=== PATIENT | female | born 1955 | race Caucasian/White ===

== ENCOUNTER → 2016-04-20 | Outpatient (CLI) | payer MEDICARE | LOC: OPSV 13:58 | DX: C56.9 Malignant neoplasm of unspecified ovary (principal); R11.0 Nausea; R11.10 Vomiting, unspecified | CPT/HCPCS: 96360; 96361; J7030 ==

== ENCOUNTER → 2016-05-05 | Outpatient (CLI) | payer MEDICARE | LOC: OPSV 15:47 | DX: C56.9 Malignant neoplasm of unspecified ovary (principal) | CPT/HCPCS: 96360; 96361; J1642; J7030 ==